=== PATIENT | male | born 1965 | race Caucasian/White ===

== ENCOUNTER 2023-07-07 07:44 | Emergency (ER) | payer OTHER, SELFPAY ==
[2023-07-07] VITALS (7 sets, daily range): BP systolic 135–151; BP diastolic 80–95; PULSE 61–88; RESP 12–18; TEMP 37.1; O2SAT 98–100; BMI 31.0; BMI 30.5
--- NOTE | ~2023-07-07 | XR_ITS ---
EXAMINATION: XR CHEST CLINICAL INFORMATION: Chest pain COMPARISON: None available. TECHNIQUE: Frontal view of the chest was obtained. FINDINGS: No significant abnormality is noted involving the heart, lungs, mediastinum, bony thorax or soft tissues. XR/XR chest 1V IMPRESSION: Unremarkable examination.
--- NOTE | ~2023-07-07 | CT_ITS ---
EXAMINATION: CT head/brain wo IV con CLINICAL INFORMATION: Reason for Exam dizziness COMPARISON: None. TECHNIQUE: Contiguous axial imaging was performed from the skull base to vertex without intravenous contrast. Sagittal and coronal reformatted images were obtained. This CT examination was performed using dose optimization techniques as appropriate, variously including the following: * Automated exposure control * Adjustment of mA and/or kV according to patient size (this includes techniques or standardized protocols for targeted exams where dose is matched to indication/reason for exam; i.e. extremities or head) Use of iterative reconstruction technique DLP: 749.88 mGy-cm FINDINGS: No acute osseous or soft tissue abnormality. The mastoids are clear. Sphenoid sinus mucosal thickening There is no evidence of acute intracranial hemorrhage or territorial infarction. No abnormal mass effect or midline shift is seen. Benitez to white matter differentiation is well preserved. No extra-axial fluid collections are identified. No hydrocephalus. Proportional prominence of the ventricles and sulcal spaces is consistent with mild volume loss. Bilateral basal ganglia prominent perivascular spaces versus chronic lacunar infarcts CT/CT head/brain wo IV con IMPRESSION: No acute intracranial abnormality including hemorrhage, mass effect, hydrocephalus, or acute territorial edematous infarction.
--- NOTE | 2023-07-07 07:50 | ECG_ITS ---
Test Reason : CHEST PAIN, SOB Blood Pressure : / mmHG Vent. Rate : 070 BPM Atrial Rate : 070 BPM P-R Int : 122 ms QRS Dur : 086 ms QT Int : 392 ms P-R-T Axes : 020 008 027 degrees QTc Int : 423 ms Normal sinus rhythm Normal ECG When compared with ECG of 04-OCT-2015 10:00, No significant change was found Referred By: John Lemus Electronically Signed By:Callum Salinas
[2023-07-07 08:05] LABS: MANUAL DIFF FLAG NO
[2023-07-07 08:11] LABS: Basophils Percent Auto 0.3 % (0-2); Eosinophils Absolute Auto 0.2 X10*3/uL (0.0-0.4); Eosinophils Percent Auto 2.5 % (0-4); Hematocrit 48.2 % (42.0-52.0); Hemoglobin 16.6 g/dl (14.0-18.0); Imm Gran Abs Auto 0.03 X10*3/uL (0.00-0.03); Imm Gran Pct Auto 0.4 % (0.0-0.4); Lymphocytes Absolute Auto 1.9 X10*3/uL (1.2-4.9); Lymphocytes Percent Auto 24.1 % (20-40); Mean Corpuscular HGB Conc 34.4 g/dl (31.0-36.0); Mean Corpuscular Hemoglobin 29.1 pg (27.0-33.0); Mean Corpuscular Volume 84.6 fL (80.0-98.0); Mean Platelet Volume 11.1 fL (9.4-12.4); Monocytes Absolute Auto 0.7 X10*3/uL (0.1-1.2); Monocytes Percent Auto 8.4 % (2-11); Neutrophils Absolute Auto 5.1 x10*3/uL (2.0-8.3); Neutrophils Percent Auto 64.3 % (45-73); Platelet Count 178 X10*3/uL (160-400); Red Cell Distribution Width 12.6 % (11.0-16.0); White Blood Count 7.9 X10*3/uL (4.8-10.8)
[2023-07-07 08:19] LABS: COVID-19 Test Negative (Negative); IDNOW Serial# 08D9AD1C; INTERNATIONAL NORM RATIO 1.1 (0.9-1.1); Prothrombin Time 13.1 SEC (11.1-13.3)
[2023-07-07 08:24] LABS: Alanine Aminotransferase 22 U/L (0-40); Albumin Level 4.2 g/dL (3.5-5.0); Alkaline Phosphatase 71 U/L (39-117); Anion Gap 14 (12-20); Aspartate Amino Transferase 16 U/L (5-37); Bilirubin Direct 0.2 mg/dL (0.0-0.5); Bilirubin Total 0.5 mg/dL (0.0-1.0); Blood Urea Nitrogen 12 mg/dL (9-16); Calcium 9.8 mg/dL (8.4-10.2); Carbon Dioxide 26 mmol/L (22-29); Chloride 105 mmol/L (96-108); Creatinine Clr Calc Pharmacy 82.5; Estimated Glomerular Filt Rate > 60; Glucose Random 104 mg/dL (60-115); Sodium 141 mmol/L (135-145); Total Protein 7.5 g/dL (6.5-8.0)
[2023-07-07 08:45] LABS: Troponin-I High Sensitivity < 2.7 ng/L (<3.5-35.0)
--- NOTE | 2023-07-07 09:46 | ED_ITS ---
HPI - General Adult General Chief complaint: Dizziness Stated complaint: Chest pain, difficulty breathing Time Seen by Provider: 07/07/23 09:43 Source: patient Mode of arrival: ambulatory Limitations: no limitations History of Present Illness HPI narrative: This is a 58-year-old male history of hypertension, history of stroke a few years ago presenting to the emergency department with complaints of fatigue, malaise, dizziness that started this morning around 07:00 which has since resolved. He reports dizziness as lightheadedness and at times room is spinning. Also tells me that this morning when he woke up and stood up he had some substernal chest pressure, shortness of breath and dizziness all of which have subsided. He states he decided to come in because years ago he had some dizziness, weakness and it turned out to be some type of stroke he thinks.. He denies weakness, visual disturbances, nausea, vomiting, abdominal pain, fevers, chills, changes in diet. NIH stroke scale- 0 Related Data Previous Rx's Medication Instructions Recorded meclizine 25 mg tablet 25 mg PO DAILY PRN dizziness #14 07/07/23 tabs Allergies Allergy/AdvReac Type Severity Reaction Status Date / Time No Known Allergies Allergy Unverified 02/04/20 19:02 [No Known Allergies*] Review of Systems 2 Review of Systems: Constitutional : No Weight loss, No Fever, No Chills, No Fatigue, No Malaise ENT/Mouth : No sore throat, No Rhinorrhea Eyes: No Eye Pain, No Swelling, No Redness Cardiovascular : No Chest Pain, No SOB, No Dyspnea on Exertion, No Orthopnea, No Edema, No Palpitations Respiratory : No Cough, No Sputum, No Wheezing Gastrointestinal : No Nausea, No Vomiting, No Diarrhea, No Constipation, No abdominal Pain, No Hematochezia, No Melena Genitourinary : No Dysuria, No Urinary Frequency, No Hematuria, Musculoskeletal : No joint pain, No Myalgias, No Joint Swelling Skin : No Skin Lesions, No rash Neuro : No Weakness, No Numbness, No Dizziness, No Headache Psych : No Anxiety/Panic, No Depression All other systems reviewed and are negative Yes all other systems are reviewed and are negative [facility] Past Medical History Attestation statement: The following information was validated with the patient. Source: old records reviewed and nursing notes reviewed Social History Social History Alcohol intake: never Smoked in Last 30 Days: No Use of substances other than those prescribed or required for medical reasons: No Advance Directives: No Advance Directives Information Provided: Yes Physical Exam ED Vital Signs: Vital Signs - 24 hr 07/07/23 08:02 07/07/23 09:43 07/07/23 10:00 Temperature 98.7 F Pulse Rate 88 61 65 Respiratory Rate 16 12 Blood Pressure 149/95 H 136/91 H 137/80 Pulse Oximetry 98 98 Oxygen Delivery Method Room Air Room Air 07/07/23 10:05 07/07/23 10:15 07/07/23 12:15 Temperature Pulse Rate 70 67 63 Respiratory Rate 12 Blood Pressure 140/92 H 151/90 H 135/84 Pulse Oximetry 99 Oxygen Delivery Method Room Air BMI result Body Mass Index 30.5 vss Appearance: Alert.? Oriented X3.? No acute distress.? Head: Normocephalic, atraumatic, no step-offs or deformities Eyes: Pupils equal, round and reactive to light. Neck: Normal inspection.? Neck supple.? CVS: Normal heart rate and rhythm.? Pulses normal.? Respiratory: No respiratory distress.? Breath sounds normal.? Abdomen: Soft and nontender.? Skin: Skin warm and dry.? Normal skin color.? Normal skin turgor.? Extremities: No lower extremity edema.? No calf ttp. 5/5 strength to bilateral upper and lower extremities Neuro: Oriented X 3.? No motor deficit.? No sensory deficit. CN 2-12 intact . Normal [id number], [id number]-[id number]-[id number] steady tandem gait normal coordination Course Reevaluation(s) Reevaluation #1: CBC unremarkable. Chemistry no acute findings requiring intervention. Troponin negative, EKG nonischemic. Coags unremarkable. COVID negative. Chest x-ray unremarkable. Orthostatic vital signs were obtained by this PA-C negative. Head CT pending. Patient asymptomatic neurological assessment remains nonfocal. Time: 10:03 Reevaluation #2: Head CT no acute intracranial abnormality including hemorrhage, mass effect, hydrocephalus or acute territorial edematous infarction. Patient feeling well. No dizziness at this time. Asymptomatic feels well NIH stroke scale still negative. No indication for MRI or CTA. At this time patient to be discharged home. Likely vertigo versus BPPV. Educated patient on diagnosis and treatment plan, answered all question, patient verbalizes understanding. At this time patient will be discharged home, advised to return with new or worsening symptoms. Educated on worrisome signs and symptoms and when to return. At this time I feel comfortable discharge home. Time: 11:44 Reevaluation #3: Second trop negative patient asymptomatic. Patient to be discharged home. He is agreeable with this plan. At time of discharge patient alert and oriented x4 nonfocal neurological assessment. Feeling much better. No medical complaints Time: 13:19 Medical Decision Making Medical Decision Making [facility] Narrative: 0948 58-year-old male presents with complaints of dizziness. Earlier today experienced chest pain and shortness of breath with standing however this has resolved Physical exam benign. NIH stroke scale 0. Normal cerebellar function Will rule out electrolyte abnormalities & orthostatic hypotension or vertigo which is most likely. Unlikely intracranial hemorrhage, stroke, posterior stroke. Unlikely ACS, PE, dissection, acute respiratory distress. Other differential includes TIA Plan at this time labs, imaging, EKG. Differential Diagnosis Differential Diagnoses: The differential diagnosis associated with the presentation includes Will rule out electrolyte abnormalities in orthostatic hypotension or vertigo which is most likely. Unlikely intracranial hemorrhage, stroke, posterior stroke. Unlikely ACS, PE, dissection, acute respiratory distress. Other differential includes TIA Admission/Observation Consideration of admission/observation: Escalation of care including admission/observation considered Consult Healthcare Provider Management of the patient was discussed with: Central Supply Clerk (Dr. Leums) Lab Data [facility] Lab Attestation statement: I reviewed the patient's lab results. 07/07/23 08:01 07/07/23 08:01 Labs: Lab Results 07/07/23 07/07/23 Range/Units 08:01 12:28 WBC 7.9 (4.8-10.8) X10*3/uL RBC 5.70 (4.60-5.80) X10*6/uL Hgb 16.6 (14.0-18.0) g/dl Hct 48.2 (42.0-52.0) % MCV 84.6 (80.0-98.0) fL MCH 29.1 (27.0-33.0) pg MCHC 34.4 (31.0-36.0) g/dl RDW 12.6 (11.0-16.0) % Plt Count 178 (160-400) X10*3/uL MPV 11.1 (9.4-12.4) fL Immature Gran % (Auto) 0.4 (0.0-0.4) % Neut % (Auto) 64.3 (45-73) % Lymph % (Auto) 24.1 (20-40) % Rincon % (Auto) 8.4 (2-11) % Eos % (Auto) 2.5 (0-4) % Baso % (Auto) 0.3 (0-2) % Lymph # (Auto) 1.9 (1.2-4.9) X10*3/uL Rincon # (Auto) 0.7 (0.1-1.2) X10*3/uL Eos # (Auto) 0.2 (0.0-0.4) X10*3/uL Baso # (Auto) 0.0 (0.0-0.2) X10*3/uL Abs Immat Gran (auto) 0.03 (0.00-0.03) X10*3/uL Absolute Neuts (auto) 5.1 (2.0-8.3) x10*3/uL Absolute Nucleated RBC 0.000 (0.0-0.012) X10*3/uL Nucleated RBC % (auto) 0.0 (0.0-0.2) /100WBC PT 13.1 (11.1-13.3) SEC INR 1.1 (0.9-1.1) Sodium 141 (135-145) mmol/L Potassium 4.0 (3.3-5.1) mmol/L Chloride 105 (96-108) mmol/L Carbon Dioxide 26 (22-29) mmol/L Anion Gap 14 (12-20) BUN 12 (9-16) mg/dL Creatinine 1.01 (0.5-1.4) mg/dL Estim Creat Clear Calc 82.5 Estimated GFR > 60 Random Glucose 104 (60-115) mg/dL Calcium 9.8 (8.4-10.2) mg/dL Total Bilirubin 0.5 (0.0-1.0) mg/dL Direct Bilirubin 0.2 (0.0-0.5) mg/dL AST 16 (5-37) U/L ALT 22 (0-40) U/L Alkaline Phosphatase 71 (39-117) U/L Troponin I High Sens < 2.7 < 2.7 (<3.5-35.0) ng/L Total Protein 7.5 (6.5-8.0) g/dL Albumin 4.2 (3.5-5.0) g/dL COVID-19 ([facility]) Negative (Negative) COVID-19 Clin Com See Note Independent Interpretation I performed an independent interpretation of an: EKG, Plain X-Ray and CT Scan Radiology Impression Discussion of test interpretation with radiology: I have reviewed the radiologist's reading. Tests considered The following testing was considered but not selected: Considered CTA however negative NIH stroke scale, nonfocal neurological assessment. No indication for MRI. Chronic Conditions Patient?s care impacted by: Hypertension and Other (hx off stroke ) Critical Care Time Critical Care Time Critical Care Time: Yes Total Critical Care Time: 35 Attestation: I attest to this time spent taking care of the patient, obtaining history, physical, reviewing labs, imaging, speaking to my attending, speaking to specialist. Discharge Plan Discharge Clinical Impression: Dizziness Patient Disposition: Home, Self-Care Instructions: Lightheadedness (ED), Dizziness (ED) Additional Instructions: Take your medications as prescribed. If you were prescribed antibiotics today, it is important that you take your medication to their entirety, do not skip any doses, do not finish them early. Follow-up with your primary care provider this week. Return to the emergency department with new or worsening symptoms. Such as fevers, chills, chest pain, shortness of breath, nausea, vomiting, dizziness, headache, vision changes, lethargy In case of emergency call 911 You can take meclizine if needed for dizziness. Medication sent to [facility] on [address]. Prescriptions: New meclizine 25 mg tablet 25 mg PO DAILY PRN (Reason: dizziness) Qty: 14 0RF Referrals: [facility] [place] [facility] [Provider Group] - 1 day Physician,Jose J J [Primary Care Provider] - 1 day Stand Alone Forms: Work/School Release
--- NOTE | 2023-07-07 09:46 | PC.NURSE ---
Patient states this am was on his computer, went to stand up and suddenly felt dizzy/ unsteady on feet, then felt some chest pain. Patient states he had a previous episode around 5 years ago and was then diagnosed with a small mini stroke . Patient states he still feels a bit unsteady on his feet, but chest pain has since resolved. Neuros intact, patient passed swallow eval, resting comfortably on stretcher at this time.
--- NOTE | 2023-07-07 12:17 | PC.NURSE ---
Patient and family informed of all lab and imaging results, waiting on second trop.
[2023-07-07 13:05] LABS: Troponin-I High Sensitivity < 2.7 ng/L (<3.5-35.0)
== END 2023-07-07 13:49 | disposition home or self-care (01) ==
PROVIDERS: Physician Assistant; Emergency Provider Emergency Medicine
DX: R42 Dizziness and giddiness (principal); R07.89 Other chest pain; R06.02 Shortness of breath; Z11.52 Encounter for screening for COVID-19; Z79.899 Other long term (current) drug therapy
CPT/HCPCS: 36415; 70450; 71045; 80048; 80076; 84484; 85025; 85610; 87635; 93005; 99284; 99285

== ENCOUNTER → 2023-07-07 07:50 | Outpatient (BNV) | payer OTHER, SELFPAY | PROVIDERS: Emergency Provider Emergency Medicine; Visit Provider Internal Medicine Cardiovascular Disease | DX: R07.9 Chest pain, unspecified (principal); R06.02 Shortness of breath | CPT/HCPCS: 93010 ==